=== PATIENT | female | born 1955 | race Two or more races ===

== ENCOUNTER 2016-09-16 19:44 | Emergency (ER) | payer SELFPAY ==
[~2016-09-16] VITALS: Ht 157.5 cm; Wt 61.2 kg
[2016-09-16 19:55] VITALS: BP 130/90
== END 2016-09-16 22:45 | disposition left against medical advice (07) ==
LOC: EDUNIT# 19:44 → EDBD 19:44 → ER 19:45
DX: R06.02 Shortness of breath (principal); Z53.21 Procedure and treatment not carried out due to patient leaving prior to being seen by health care provider
CPT/HCPCS: 93005